=== PATIENT | female | born 1965 | race Two or more races ===

== ENCOUNTER 2018-10-21 18:11 | Outpatient (CLI) | payer OTHER | END 2018-10-21 19:00 | disposition home or self-care (01) | LOC: RAD 18:11 | DX: M25.561 Pain in right knee (principal); M25.562 Pain in left knee ==

== ENCOUNTER → 2019-03-31 | Outpatient (CLI) | payer OTHER | END | disposition home or self-care (01) | LOC: RAD 16:16 | DX: M25.561 Pain in right knee (principal); M25.562 Pain in left knee ==

== ENCOUNTER 2021-02-15 07:45 | Inpatient (IN) | payer OTHER ==
[~2021-02-15] VITALS: Ht 160 cm; Wt 99.8 kg
[2021-02-15] MEDS ORDERED: MOBIC7.5 MG PO (09:42)
== END 2021-02-24 18:25 | DRG 470 ==
LOC: SURG 02-22 05:41 → O/R 02-22 05:41 → SURH 02-22 07:45 → SURG 02-22 10:43 → SURH 02-22 11:45 → SURG 02-24 18:25
PROVIDERS: ADMIT Orthopaedic Surgery; ATTEND Orthopaedic Surgery
PROC: 0SRC0J9 Replacement of Right Knee Joint with Synthetic Substitute, Cemented, Open Approach (ICD-10-PCS; principal; 2021-02-22 11:45)
DX: M17.11 Unilateral primary osteoarthritis, right knee (principal); D62 Acute posthemorrhagic anemia; M85.861 Other specified disorders of bone density and structure, right lower leg

== ENCOUNTER 2024-03-17 11:30 | Outpatient (CLI) | payer OTHER ==
[~2024-03-17 11:30] MED LIST: MOBIC7.5 MG PO
== END 2024-03-17 11:34 | disposition home or self-care (01) ==
LOC: SONOGRAMA 11:30
PROVIDERS: ATTEND Pathology Anatomic Pathology
DX: D34 Benign neoplasm of thyroid gland (principal); E07.89 Other specified disorders of thyroid; E04.1 Nontoxic single thyroid nodule